=== PATIENT | female | born 1945 | race Caucasian/White ===

== ENCOUNTER 2021-01-20 20:36 | Emergency (ER) | payer MEDICARE ==
[~2021-01-20] VITALS: Ht 167.6 cm; Wt 70.0 kg
[~2021-01-20 20:36] MED LIST: ASPI-1026 PO; ASPI-696 PO; LEVO112T2 PO; LEVO125T PO; LORA-59 PO; LORA10TA75 PO
--- NOTE | 2021-01-20 20:54 | NUR ---
BIBA FROM HOME FOR DIARRHEA AND HEART PALPITATIONS. ATTACHED TO CARD/SP02/BP MONITORS, VSS. NADN BED ION LOW, RAILS ENGAGED, CALL LIGHT ON LAP. PT CHANGED INTO GOWN, A&0X4, BREATHING ERVEN AND UNLABORED. DENIES HEADACHE, N/V, FEVER/CHILLS, SOB, AND CP
--- NOTE | 2021-01-20 21:11 | NUR ---
PT GIVEN ICE WATER WITH ER MD APPROVAL
--- NOTE | 2021-01-20 21:13 | NUR ---
Patient is resting comfortably in bed. Bed in lowest, rails engaged, call light on lap. Vital Signs within normal limits. ISHAN. PATENT SOLICITOR AT BEDSIDE, JAH
[2021-01-20 21:25] LABS: BASOPHILS % (AUTO) 0 % (0-1); EOSINOPHILS % (AUTO) 1 % (1-7); LYMPHOCYTES % (AUTO) 27 % (22-44); MEAN CORPUSCULAR HEMOGLOBIN 32.7 pg (27.0-34.8); MEAN CORPUSCULAR HGB CONC 34.4 g/dL (32.4-35.8); MEAN PLATELET VOLUME 8.1 fL (7.4-10.4); MONOCYTES % (AUTO) 7 % (2-9); NEUTROPHILS % (AUTO) 65 % (42-75); PLATELET COUNT 254 x10^3/uL (130-400); RED BLOOD COUNT 4.31 x10^6/uL (3.82-5.3); RED CELL DISTRIBUTION WIDTH 12.2 % (9.6-15.2)
[2021-01-20 21:34] LABS: ALANINE AMINOTRANSFERASE 24 U/L (12-78); ALBUMIN 3.5 g/dL (3.4-5.0); ANION GAP 8 mmol/L (5-15); CHLORIDE 110 mmol/L (98-107); CREATININE 0.73 mg/dL (0.55-1.02)
[2021-01-20 21:44] LABS: ALKALINE PHOSPHATASE 80 U/L (45-117); BILIRUBIN,TOTAL 0.6 mg/dL (0.2-1.0); FREE T4 (FREE THYROXINE) 1.68 ng/dL (0.76-1.46); TOTAL PROTEIN 7.5 g/dL (6.4-8.2); TROPONIN I < 0.015 ng/mL (0.000-0.045)
--- NOTE | 2021-01-20 22:02 | NUR ---
PT AMBULATED TO BATHROOM AND BACK TO BED WITH STEADY GAIT. ATTACHED TO MONITORS.
--- NOTE | 2021-01-20 22:12 | NUR ---
PT PASSED ROAD TEST AND ORTHOSTATIC HYPOTENSION TEST. WHILE ORTHO TEST PT HR BECAME IRREGULAR AND WENT INTO THE 120'S NOTIFIED ELOISE
[2021-01-20] MEDS ORDERED: METOPROLOL SUCCINATE 25 MG TAB.ER.24H PO ONE (23:27)
[2021-01-21 00:09] VITALS: BP 138/74
--- NOTE | 2021-01-21 00:33 | NUR ---
Patient/Caregiver given discharge instructions and they have confirmed that they understand the instructions. Patient ambulatory with steady gait. NAD, all questions answered appropriately, denies additional needs at this time. No personal belongings left in room after discharge.
== END 2021-01-21 00:34 | disposition home or self-care (01) ==
LOC: ED 23:59
DX: I48.0 Paroxysmal atrial fibrillation (principal); R19.7 Diarrhea, unspecified; Z87.891 Personal history of nicotine dependence
CPT/HCPCS: 36415; 71045; 80053; 83880; 84439; 84443; 84484; 85025; 93005; 99285